=== PATIENT | female | born 1940 | race Caucasian/White ===

== ENCOUNTER 2019-03-17 18:59 | Emergency (ER) | payer MEDICARE, MEDICAID ==
--- OUTSIDE RECORDS SUMMARY | 2019-03-17 19:36 | XMS REPORT | Continuity of Care Document ---
:1940 External Reference #:[id number] Author Name Mililani Cecille Care Team Providers Name Role Phone Susana Goode MD Care Team Information Art Class Model Unavailable Susana Goode MD Primary Care Physician Unavailable Payers Date Identification Numbers Payment Provider Subscriber Policy Number: [id number] Medicare Alejandrina Rodriguez PayID: [id number] [address] [place] [address] Policy Number: [id number] Medicaid Alejandrina Rodriguez Group Name: 1 1 [address] PayID: [id number] [place] [address] Problems Active Problems Provider Date Electrocardiogram abnormal Marily Jovel M.D. Onset: 11/21/2011 Chest pain Marily Jovel M.D. Onset: 11/21/2011 Dyspnea Marily Jovel M.D. Onset: 11/21/2011 Family History Date Family Member(s) Observation Comments General Cardiomyopathy pt is one of 9 children who mostly remain in her home country of [facility] one sister reported at age 21 believed to be from cardiac myopathy pt mother was known to have DVT in her legs and PVD : (age 80 Father due to Unknown Years) Causes : (age 78 Mother due to Unknown Years) Causes Siblings 8 Social History Type Date Description Comments Sex Unknown Marital Status Single Marital Status Ex in [facility] Lives With Alone Occupation Retired age 51 - she stopped working when she came to the [place] Use Denies alcohol use Tobacco Use Start: Unknown Patient has never smoked Recreational Drug Use Denies Drug Use Smoking Status Reviewed: 02/21/19 Patient has never smoked Exercise Type/Frequency Exercises rarely walking to get to the bus Allergies, Adverse Reactions, Alerts Description No Known Drug Allergies Medications Active Medications SIG Qnty Indications Ordering Date Provider Alendronate Sodium 1 by mouth weekly Unknown 02/13/2019 70mg 1 hour before Tablets breakfast with a full glass of water sitting up Albuterol Sulfate inhale 1 vial via Unknown 08/28/2018 nebulizer three 1.25mg/3ML Nebulizer times or 4 times a day as needed Methimazole 5mg by mouth once Unknown 5mg Tablets daily Latanoprost as directed Unknown 0.005% Solution Dorzolamide HCL/Timolol as directed Unknown Maleate 22.3-6.8mg/ml Solution Calcium 600 + D 2 by mouth twice Unknown a day [id number]-Otib Tablets Multi Vitamin 1 by mouth every Unknown Tablets day Aspirin 81 Low Dose 1 by mouth every Unknown 81mg day Chewtabs Ibuprofen 200 400-600mg every 6 Unknown 200mg Tablets hours as needed for pain. Thyroid (Porcine) pt states she Unknown Powder takes thyroid medicine . she is instructed to bring bottle to visit Toni Aleman from health system Unknown Powder sources over the counter pt states she takes for her heart Cyclobenzaprine HCL take one every 8 30tabs Unknown 5mg hrs as needed Tablets during the day and 2 at bedtime. History Medications No Active Medications Unknown 04/20/2014 - 04/20/2014 Tramadol HCL 1 po Q6h prn 60tabs 805.2 Pop Jackson, 03/18/2014 - 50mg Tablets pain M.D. 04/20/2014 No Active Medications Unknown 11/21/2011 - 03/18/2014 Cyclobenzaprine HCL take one every 30tabs Unknown - 5mg 8 hrs as needed 04/20/2014 Tablets during the day and 2 at bedtime. Oxycodone-Acetaminophen take 1 to 2 80tabs Unknown - tablets by 04/20/2014 5-325mg Tablets mouth every 4 to 6hours as needed pain MMD of 6 Vital Signs Date Vital Result Comment 02/21/2019 10:59am Height 59 inches 4'11" Weight 118.00 lb with shoes BP Systolic Sitting 150 mmHg Lue reg cuff BP Diastolic Sitting 90 mmHg Lue reg cuff BP Systolic Standing 150 mmHg Lue reg cuff BP Diastolic Standing 100 mmHg Lue reg cuff BMI (Body Mass Index) 23.8 kg/m2 04/20/2014 3:30pm Height 61.8 inches 5'1.80" Weight 131.00 lb Heart Rate 78 /min BP Systolic Sitting 118 mmHg BP Diastolic Sitting 70 mmHg Pain Level 3 back BMI (Body Mass Index) 24.1 kg/m2 03/18/2014 3:06pm Height 61.8 inches 5'1.80" Weight 137.25 lb Heart Rate 104 /min BP Systolic Sitting 124 mmHg BP Diastolic Sitting 70 mmHg Pain Level 9 mid back BMI (Body Mass Index) 25.3 kg/m2 01/10/2012 10:52am Height 61.8 inches 5'1.80" Weight 144.00 lb Heart Rate 84 /min BP Systolic Sitting 132 mmHg BP Diastolic Sitting 74 mmHg BMI (Body Mass Index) 26.5 kg/m2 11/21/2011 1:06pm Height 61.8 inches 5'1.80" Weight 154.00 lb Heart Rate 89 /min BP Systolic Sitting 114 mmHg right arm, left arm 118/68 BP Diastolic Sitting 62 mmHg right arm, left arm 118/68 BP Systolic Standing 108 mmHg right arm BP Diastolic Standing 66 mmHg right arm BMI (Body Mass Index) 28.3 kg/m2 Procedures Date Code Description Status 02/21/2019 12957 EKG Tracing & Interpretation Completed 02/05/2012 05450 Holter Monitoring 24 HR New Completed 12/29/2011 93700 ECHO Transthoracic, Real-Time 2D With Doppler And Color Completed Flow 12/27/2011 32071 ECHO Stress Test Incl Perf Contiuous ekg Monitoring W/Phys Completed Superv 11/21/2011 18949 EKG Tracing & Interpretation Completed Encounters Type Date Location Provider Dx Diagnosis Office Visit 04/20/2014 [facility] Pop Jackson, 805.2 FX Dorsal 3:00p [facility] Vertebra Closed W/O Spinal Cord Injury Office Visit 03/18/2014 [facility] Pop Jackson, 805.2 FX Dorsal 3:15p [facility] ([facility] Vertebra Closed W/O Spinal Cord Injury Office Visit 01/10/2012 [facility] Qutaybeh S. 786.50 Pain Chest Unspec 11:00a Shiloh Jovel 786.05 Shortness Of Breath 785.1 Palpitations 785.0 Tachycardia Unspec Office 11/21/2011 [place] Marily S. 794.31 Electrocardiogram Visit 1:[facility]p [facility] Shiloh Jovel (ECG) (EKG) Abnormal 786.50 Pain Chest Unspec 786.05 Shortness Of Breath Plan of Treatment 02/21/2019 - John Welch DO [id number] Chest pain, unspecifiedFollow up:PRN
[2019-03-17 22:11] LABS: ABS Basophils 0.1 10^3/ul (0-0.2); ABS Eosinophils 0.1 10^3/ul (0-0.6); ABS Lymphocytes 2.3 10^3/ul (1.0-4.8); ABS Monocytes 0.5 10^3/ul (0-0.8); ABS Neutrophils 6.1 10^3/ul (1.5-7.7); Eosinophil % 1.3 %; Hematocrit 39 % (35-47); Hemoglobin 12.7 g/dL (12.0-16.0); Lymphocyte % 25.2 %; Mean Corpuscular HGB Conc 32 g/dL (31-36); Mean Corpuscular Hemoglobin 30 pg (27-31); Mean Corpuscular Volume 93 fL (80-97); Mean Platelet Volume 9.1 fL (7.4-10.4); Platelet Count 231 10^3/uL (150-450); Red Blood Count 4.22 10^6 /uL (3.70-4.87); Red Cell Distribution Width 13 % (10-15); White Blood Count 9.1 10^3/uL (3.5-10.8)
[2019-03-17 22:29] LABS: BUN/Creatinine Ratio 20.3 (8-20); Calcium 9.7 mg/dL (8.6-10.3); EGFR African American 108.6 (>60); EGFR Non-African American 89.7 (>60); Potassium 3.9 mmol/L (3.5-5.0)
[2019-03-18 00:15] LABS: Albumin 4.2 g/dL (3.2-5.2); Albumin/Globulin Ratio 1.4 (1-3); C Reactive Protein 1.53 mg/L (<8.01); Globulin 3.1 g/dL (2-4); Magnesium 1.9 mg/dL (1.9-2.7); Total Bilirubin 0.9 mg/dL (0.2-1.0); Total Protein 7.3 g/dL (6.4-8.9)
[2019-03-18 00:31] LABS: TSH (Thyroid Stimulating Horm) 0.01 mcIU/mL (0.34-5.60)
[2019-03-18 00:37] LABS: Urine Appearance Clear; Urine Bacteria Absent (Absent); Urine Bilirubin Negative (Negative); Urine Blood 2+ (Negative); Urine Color Straw; Urine Glucose Negative (Negative); Urine Ketones 1+ (Negative); Urine Nitrite Negative (Negative); Urine Protein Negative (Negative); Urine Red Blood Cell 2+(6-10/hpf) (Absent); Urine Specific Gravity 1.006 (1.010-1.030); Urine Urobilinogen Negative (Negative); Urine White Blood Cell Trace(0-5/hpf) (Absent)
[2019-03-18] MEDS ORDERED: Ibuprofen TAB* 600 MG PO ONE (01:25)
[2019-03-18] MEDS ORDERED: Iohexol 300* (CONTRAST) 10 ML SDV IV ONE (01:53)
--- NOTE | 2019-03-18 02:01 | ED ---
Complex/Multi-Sys Presentation - HPI Summary HPI Summary: Patient complains of left lateral chest wall pain, left back pain 1 week. Diagnosed with rib fracture by x-ray 2 weeks ago at urgent care. Also complains of epigastric pain 1 month with nausea after eating 1 week. Epigastric pain intermittent, no active pain here in the ED. Denies known trauma, fever, cough, sore throat, CP, N/V/D, change in urine, change in BM. 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 Abdominal surgical history is none. - History Of Current Complaint Chief Complaint: EDGeneral Time Seen by Provider: 03/17/19 23:14 Hx Obtained From: Patient Onset/Duration: Gradual Onset, Lasting Weeks Timing: Intermittent, Lasting: Severity Currently: None Severity Initially: Moderate - Allergies/Home Medications Allergies/Adverse Reactions: Allergies Allergy/AdvReac Type Severity Reaction Status Date / Time MS Benzalkonium Chloride Allergy Rash Verified 03/17/19 19:22 [From Lumigan] MS Bimatoprost [From Lumigan] Allergy Rash Verified 03/17/19 19:22 PMH/Surg Hx/FS Hx/Imm Hx Endocrine/Hematology History: Denies: Hx Diabetes, Hx Anemia Cardiovascular History: Denies: Hx Pacemaker/ICD GI History: Denies: Hx Jaundice History: Denies: Hx Dialysis Musculoskeletal History: Reports: Hx Osteoporosis Sensory History: Reports: Hx Cataracts - left eye, Hx Contacts or Glasses - GLASSES TO READ Denies: Hx Hearing Aid Opthamlomology History: Reports: Hx Cataracts - left eye, Hx Contacts or Glasses - GLASSES TO READ EENT History: Denies: Hx Deafness Neurological History: Denies: Hx Dementia, Other Neuro Impairments/Disorders Psychiatric History: Denies: Hx Autism - Cancer History Hx Chemotherapy: No Hx Radiation Therapy: Yes - THYROID - Surgical History Surgery Procedure, Year, and Place: 2006 LEFT EYE SURGERY, [facility] – [place] Hx Anesthesia Reactions: No Infectious Disease History: No Infectious Disease History: Denies: Traveled Outside the [place] in Last 30 Days - Family History Known Family History: Positive: Unknown - Social History Alcohol Use: Rare Substance Use Type: Reports: None Smoking Status (MU): Never Smoked Tobacco Review of Systems Constitutional: Negative Eyes: Negative ENT: Negative Cardiovascular: Negative Respiratory: Negative Positive: Abdominal Pain, Nausea Genitourinary: Negative Musculoskeletal: Negative Skin: Negative Neurological: Negative Psychological: Normal All Other Systems Reviewed And Are Negative: Yes Physical Exam - Summary Physical Exam Summary: Tenderness to palpation along left lateral chest wall. No ecchymosis, erythema , deformity, swelling noted. No CVA tenderness bilaterally. Mild pain with palpation epigastrically, Abdomen otherwise soft nontender. Lung sounds clear to auscultation bilaterally. Triage Information Reviewed: Yes Vital Signs On Initial Exam: Initial Vitals Temp Pulse Resp BP Pulse Ox 98.6 F 101 16 168/103 96 03/17/19 19:20 03/17/19 19:20 03/17/19 19:20 03/17/19 19:20 03/17/19 19:20 Vital Signs Reviewed: Yes Appearance: Positive: Well-Appearing Skin: Positive: Warm Head/Face: Positive: Normal Head/Face Inspection Eyes: Positive: Normal Neck: Positive: Supple Respiratory/Lung Sounds: Positive: Clear to Auscultation Cardiovascular: Positive: Normal Abdomen Description: Positive: Other: Musculoskeletal: Positive: Normal Neurological: Positive: Normal Psychiatric: Positive: Normal AVPU Assessment: Alert - Heladio Coma Scale Best Eye Response: 4 - Spontaneous Best Motor Response: 6 - Obeys Commands Best Verbal Response: 5 - Oriented Coma Scale Total: 15 Diagnostics - Vital Signs Vital Signs Temp Pulse Resp BP Pulse Ox 03/18/19 00:26 91 152/89 94 03/18/19 00:20 95 150/97 97 03/18/19 00:00 86 96 03/17/19 23:44 86 145/81 96 03/17/19 23:14 97 158/115 97 03/17/19 21:29 98.5 F 92 15 142/83 95 03/17/19 19:20 98.6 F 101 16 168/103 96 - Laboratory Lab Results: Lab Results 03/17/19 03/17/19 03/18/19 Range/Units 21:50 21:50 00:20 WBC 9.1 (3.5-10.8) 10^3/uL RBC 4.22 (3.70-4.87) 10^6 /uL Hgb 12.7 (12.0-16.0) g/dL Hct 39 (35-47) % MCV 93 (80-97) fL MCH 30 (27-31) pg MCHC 32 (31-36) g/dL RDW 13 (10-15) % Plt Count 231 (150-450) 10^3/uL MPV 9.1 (7.4-10.4) fL Neut % (Auto) 66.8 % Lymph % (Auto) 25.2 % [place] % (Auto) 5.6 % Eos % (Auto) 1.3 % Baso % (Auto) 1.1 % Absolute Neuts (auto) 6.1 (1.5-7.7) 10^3/ul Absolute Lymphs (auto) 2.3 (1.0-4.8) 10^3/ul Absolute Monos (auto) 0.5 (0-0.8) 10^3/ul Absolute Eos (auto) 0.1 (0-0.6) 10^3/ul Absolute Basos (auto) 0.1 (0-0.2) 10^3/ul Absolute Nucleated RBC 0.0 10^3/ul Nucleated RBC % 0.0 Sodium 136 (135-145) mmol/L Potassium 3.9 (3.5-5.0) mmol/L Chloride 103 (101-111) mmol/L Carbon Dioxide 26 (22-32) mmol/L Anion Gap 7 (2-11) mmol/L BUN 13 (6-24) mg/dL Creatinine 0.64 (0.51-0.95) mg/dL Est GFR ( Amer) 108.6 (>60) Est GFR (Non-Af Amer) 89.7 (>60) BUN/Creatinine Ratio 20.3 H (8-20) Glucose 107 H (70-100) mg/dL Calcium 9.7 (8.6-10.3) mg/dL Magnesium 1.9 (1.9-2.7) mg/dL Total Bilirubin 0.90 (0.2-1.0) mg/dL AST 15 (13-39) U/L ALT 10 (7-52) U/L Alkaline Phosphatase 68 (34-104) U/L C-Reactive Protein 1.53 (<8.01) mg/L Total Protein 7.3 (6.4-8.9) g/dL Albumin 4.2 (3.2-5.2) g/dL Globulin 3.1 (2-4) g/dL Albumin/Globulin Ratio 1.4 (1-3) Lipase 38 (11.0-82.0) U/L TSH 0.01 L (0.34-5.60) mcIU/mL Urine Color Straw Urine Appearance Clear Urine pH 6.0 (5-9) Ur Specific [place] 1.006 L (1.010-1.030) Urine Protein Negative (Negative) Urine Ketones 1+ A (Negative) Urine Blood 2+ A (Negative) Urine Nitrate Negative (Negative) Urine Bilirubin Negative (Negative) Urine Urobilinogen Negative (Negative) Ur Leukocyte Esterase Negative (Negative) Urine WBC (Auto) Trace(0-5/hpf) (Absent) Urine RBC (Auto) 2+(6-10/hpf) A (Absent) Urine Bacteria Absent (Absent) Urine Glucose Negative (Negative) Result Diagrams: 03/17/19 21:50 03/17/19 21:50 Lab Statement: Any lab studies that have been ordered have been reviewed, and results considered in the medical decision making process. Complex Multi-Symp Course/Dx Course Of Treatment: Patient complains of left lateral chest wall pain, left back pain 1 week. Diagnosed with rib fracture by x-ray 2 weeks ago at urgent care. Also complains of epigastric pain 1 month with nausea after eating 1 week. Epigastric pain intermittent, no active pain here in the ED. Denies known trauma, fever, cough, sore throat, CP, N/V/D, change in urine, change in BM. 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 Abdominal surgical history is none. Physical exam:Tenderness to palpation along left lateral chest wall. No ecchymosis, erythema, deformity, swelling noted. No CVA tenderness bilaterally. Mild pain with palpation epigastrically , Abdomen otherwise soft nontender. Lung sounds clear to auscultation bilaterally. Vital signs within normal limits. Labs unremarkable. CT abdomen and pelvis unremarkable. Rx for Zofran. - Diagnoses Provider Diagnoses: Gastroenteritis Discharge - Sign-Out/Discharge Documenting (check all that apply): Sign-Out Patient Signing out patient TO: Zhen Dos Santos Patient Received Moderate/Deep Sedation with Procedure: No - Discharge Plan Condition: Stable Disposition: HOME Prescriptions: Omeprazole 20 mg PO DAILY 30 Days #30 capsule. Ondansetron ODT TAB* [Zofran 4 MG Odt TAB*] 4 mg PO Q8H PRN 4 Days #14 tab.odt PRN Reason: Nausea Patient Education Materials: Gastroenteritis (ED) Forms: *Work Release Referrals: Susana Goode MD [Primary Care Provider] - 3 Days Additional Instructions: PLEASE RETURN TO THE ED IMMEDIATELY FOR WORSENING OR CONCERNING SYMPTOMS. FOLLOW UP WITH YOUR PRIMARY CARE PHYSICIAN WITHIN THREE DAYS. - Billing Disposition and Condition Condition: STABLE Disposition: Home
[2019-03-18] MEDS ORDERED: Pantoprazole TAB * 40 MG TAB PO ONE (02:44)
--- NOTE | 2019-03-18 03:27 | ED ---
Progress - Progress Note Progress Note: Patient is received as a sign out from MARE Seo at 0230 03/18/[address] ABD/PEL. CT ABD/PEL IMPRESSION: 1. Mild mucosal thickening of the distal stomach and proximal small bowel which is nonspecific however may be seen in gastroenteritis. 2. Colonic diverticulosis with no evidence of acute diverticulitis. THIS REPORT WAS REVIEWED BY DR. JONES. Patient will be discharged to home and follow up with PCP. Strict return precautions were given. Patient is agreeable with this plan. Course/Dx - Course Course Of Treatment: Patient is received as a sign out from MARE Seo at 0230 03/18/[address] ABD/PEL. CT ABD/PEL IMPRESSION: 1. Mild mucosal thickening of the distal stomach and proximal small bowel which. is nonspecific however may be seen in gastroenteritis. 2. Colonic diverticulosis with no evidence of acute diverticulitis. THIS REPORT WAS REVIEWED BY DR. JONES. Patient will be discharged to home and follow up with PCP. Strict return precautions were given. Patient is agreeable with this plan. - Diagnoses Provider Diagnoses: Gastroenteritis Discharge - Sign-Out/Discharge Documenting (check all that apply): Patient Departure - discharge Patient Received Moderate/Deep Sedation with Procedure: No - Discharge Plan Condition: Stable Disposition: HOME Prescriptions: Omeprazole 20 mg PO DAILY 30 Days #30 capsule. Ondansetron ODT TAB* [Zofran 4 MG Odt TAB*] 4 mg PO Q8H PRN 4 Days #14 tab.odt PRN Reason: Nausea Patient Education Materials: Gastroenteritis (ED) Referrals: Susana Goode MD [Primary Care Provider] - 3 Days Additional Instructions: PLEASE RETURN TO THE ED IMMEDIATELY FOR WORSENING OR CONCERNING SYMPTOMS. FOLLOW UP WITH YOUR PRIMARY CARE PHYSICIAN WITHIN THREE DAYS. - Attestation Statements Document Initiated by Scribe: Yes Documenting Scribe: KEITH PENALOZA Provider For Whom Abdelrahman is Documenting (Include Credential): JULIANA JONES MD Scribe Attestation: KEITH Miner, scribed for JULIANA JONES MD on 03/18/19 at 0409. Status of Scribe Document: Ready
[2019-03-18 04:22] VITALS: BP 151/81
== END 2019-03-18 04:20 | disposition home or self-care (01) ==
LOC: ED 18:59
DX: K52.9 Noninfective gastroenteritis and colitis, unspecified (principal); S22.39XA Fracture of one rib, unspecified side, initial encounter for closed fracture; E05.00 Thyrotoxicosis with diffuse goiter without thyrotoxic crisis or storm; E78.5 Hyperlipidemia, unspecified; J45.909 Unspecified asthma, uncomplicated; M81.0 Age-related osteoporosis without current pathological fracture; K57.30 Diverticulosis of large intestine without perforation or abscess without bleeding; R10.84 Generalized abdominal pain
CPT/HCPCS: 36415; 74177; 80053; 81003; 81015; 83690; 83735; 84443; 85025; 86140; 87086; 99282; A9270-GY; Q9967